=== PATIENT | male | born 1965 | race Two or more races ===

== ENCOUNTER 2020-11-23 00:43 | Inpatient (IN) | payer MEDICAID, OTHER ==
[~2020-11-23] VITALS: Ht 160 cm; Wt 62.5 kg
[2020-11-23 01:42] LABS: Basophils # (auto) 0 10 ^3/uL (0-0.2); Basophils % (auto) 0.7 % (0.0-2.0); Eosinophils # (auto) 0.1 10 ^3/uL (0-0.8); Eosinophils % (auto) 0.8 % (0.0-7.0); Hematocrit 38.2 % (41.0-53.0); Hemoglobin 13.5 g/dL (13.5-17.5); Lymphocytes # (auto) 0.8 10 ^3/uL (0.4-5.4); Lymphocytes % (auto) 12.1 % (10.0-50.0); Mean Corpuscular Hemoglobin 31.1 pg (28.0-32.0); Mean Corpuscular Hgb Conc. 35.4 g/dL (32.0-36.0); Mean Corpuscular Volume 87.8 fL (80.0-100.0); Monocytes # (auto) 0.7 10 ^3/uL (0-1.3); Monocytes % (auto) 9.9 % (0.0-12.0); Neutrophils # (auto) 5.3 10 ^3/uL (1.6-8.6); Neutrophils % (auto) 76.5 % (37.0-80.0); Nucleated Red Blood Cells % 0.1 %; Red Blood Cells 4.35 10^6/uL (4.5-5.90); Red Cell Distribution Width 13.2 % (11.8-14.3)
[2020-11-23 02:08] LABS: Potassium 4.3 mmol/L (3.5-5.1)
[2020-11-23 02:11] LABS: BUN/Creatinine Ratio 14.1
[2020-11-23 02:14] LABS: Bilirubin, Total 0.6 mg/dL (0.2-1.0); Total Protein 7.4 g/dL (6.4-8.2)
[2020-11-23 03:10] LABS: Urine Bacteria FEW /hpf (None Seen); Urine Blood Negative /uL (Negative); Urine Specific Gravity 1.024 (1.001-1.035); Urine WBC 1 /hpf (0 - 3)
[2020-11-23] MEDS ORDERED: HYDROmorphone HCL 2 MG/ML VL IV ONE ×2 (04:15→04:30)
[2020-11-23] MEDS ORDERED: PIPERACILLIN-TAZOB 3.375GM 100 ML IV ONE ×2 (04:15→04:30)
[2020-11-23] MEDS ORDERED: SODIUM CHLORIDE 0.9% 1,000 ML IV ONE ×2 (04:15→04:30)
[2020-11-23] MEDS ORDERED: InsuLIN REG 1unit/0.01ml Soln (100units/ml) IV ONE (04:30)
[2020-11-23] MEDS ORDERED: TEMAZEPAM 15 MG CAP PO PRN (06:30)
[2020-11-23] MEDS ORDERED: ONDANSETRON HCL 4 MG/2 ML VIAL IV PRN (06:30)
[2020-11-23] MEDS ORDERED: ACETAMINOPHEN 325 MG TAB PO PRN (06:30)
[2020-11-23] MEDS ORDERED: DEXTROSE (50%) 50ML SYRG IV PRN (13:45)
[2020-11-23] MEDS: CLINDAMYCIN 600MG IV 50 ML IV SCH ×2 (14:03→22:01)
[2020-11-23 14:42] LABS: INR 0.97 (0.9-1.15)
[2020-11-23 16:00] VITALS: BP 150/92
[2020-11-23 17:00] VITALS: BP 150/92
[2020-11-23] MEDS: ACCU-CHEK COMFORT CURVE STRIP VI SCH ×2 (17:37→22:30)
[2020-11-23] MEDS: InsuLIN REG 1unit/0.01ml Soln (100units/ml) SC SCH ×2 (17:40→22:34)
[2020-11-23 20:00] VITALS: BP 128/85
[2020-11-23 22:00] VITALS: BP 128/85
[2020-11-23] MEDS: INSULIN LANTUS (GLARGINE) 1 /0.01ml (100units/ml) SC SCH (22:35)
[2020-11-24 05:00] VITALS: BP 139/84
[2020-11-24 05:35] LABS: Basophils # (auto) 0 10 ^3/uL (0-0.2); Basophils % (auto) 0.7 % (0.0-2.0); Eosinophils # (auto) 0.1 10 ^3/uL (0-0.8); Eosinophils % (auto) 1.3 % (0.0-7.0); Hematocrit 35.7 % (41.0-53.0); Hemoglobin 12.6 g/dL (13.5-17.5); Lymphocytes % (auto) 15.4 % (10.0-50.0); Mean Corpuscular Hemoglobin 30.6 pg (28.0-32.0); Mean Corpuscular Hgb Conc. 35.4 g/dL (32.0-36.0); Mean Corpuscular Volume 86.5 fL (80.0-100.0); Monocytes # (auto) 0.6 10 ^3/uL (0-1.3); Monocytes % (auto) 10.3 % (0.0-12.0); Neutrophils # (auto) 4.5 10 ^3/uL (1.6-8.6); Neutrophils % (auto) 72.3 % (37.0-80.0); Red Blood Cells 4.13 10^6/uL (4.5-5.90); Red Cell Distribution Width 13.1 % (11.8-14.3); White Blood Cell 6.3 10^3/uL (4.4-10.8)
[2020-11-24 05:58] LABS: Potassium 3.9 mmol/L (3.5-5.1)
[2020-11-24] MEDS: CLINDAMYCIN 600MG IV 50 ML IV SCH ×3 (06:03→22:12)
[2020-11-24 06:05] LABS: Albumin 2.4 g/dL (3.4-5.0); BUN/Creatinine Ratio 18.5; Calcium 8.9 mg/dL (8.5-10.1)
[2020-11-24 06:08] LABS: Bilirubin, Total 0.5 mg/dL (0.2-1.0); Total Protein 6.5 g/dL (6.4-8.2)
[2020-11-24] MEDS: ACCU-CHEK COMFORT CURVE STRIP VI SCH ×4 (06:34→22:12)
[2020-11-24] MEDS: InsuLIN REG 1unit/0.01ml Soln (100units/ml) SC SCH ×4 (06:37→22:13)
[2020-11-24] MEDS: INSULIN LANTUS (GLARGINE) 1 /0.01ml (100units/ml) SC SCH ×2 (06:43→22:13)
[2020-11-24 08:54] VITALS: BP 135/87
[2020-11-24] MEDS: cefTRIAXone 1GM/50ML D5W 50 ML IV SCH (10:29)
[2020-11-24] MEDS: Glucerna Carbsteady SHAKE Vanilla 8oz PO SCH ×2 (12:29→18:14)
[2020-11-24 12:37] VITALS: BP 136/78
[2020-11-24 16:38] VITALS: BP 127/84
[2020-11-24] MEDS: HYDROcodone-ACET 5/325MG TAB PO PRN (19:20)
[2020-11-25 05:00] VITALS: BP 107/68
[2020-11-25 05:26] LABS: Basophils # (auto) 0 10 ^3/uL (0-0.2); Basophils % (auto) 0.6 % (0.0-2.0); Eosinophils # (auto) 0.1 10 ^3/uL (0-0.8); Eosinophils % (auto) 2.3 % (0.0-7.0); Hematocrit 39.9 % (41.0-53.0); Hemoglobin 14.1 g/dL (13.5-17.5); Lymphocytes % (auto) 18.1 % (10.0-50.0); Mean Corpuscular Hgb Conc. 35.2 g/dL (32.0-36.0); Mean Corpuscular Volume 87.9 fL (80.0-100.0); Monocytes # (auto) 0.7 10 ^3/uL (0-1.3); Monocytes % (auto) 12.8 % (0.0-12.0); Neutrophils # (auto) 3.7 10 ^3/uL (1.6-8.6); Neutrophils % (auto) 66.2 % (37.0-80.0); Nucleated Red Blood Cells % 0.1 %; Red Blood Cells 4.55 10^6/uL (4.5-5.90); Red Cell Distribution Width 13.2 % (11.8-14.3); White Blood Cell 5.6 10^3/uL (4.4-10.8)
[2020-11-25 05:41] LABS: Potassium 3.9 mmol/L (3.5-5.1)
[2020-11-25 05:49] LABS: Albumin 2.2 g/dL (3.4-5.0); BUN/Creatinine Ratio 21.4; Bilirubin, Total 0.3 mg/dL (0.2-1.0); Calcium 8.8 mg/dL (8.5-10.1); Total Protein 6.8 g/dL (6.4-8.2)
[2020-11-25] MEDS: CLINDAMYCIN 600MG IV 50 ML IV SCH ×3 (06:16→21:50)
[2020-11-25] MEDS: ACCU-CHEK COMFORT CURVE STRIP VI SCH ×4 (06:16→21:50)
[2020-11-25] MEDS: InsuLIN REG 1unit/0.01ml Soln (100units/ml) SC SCH ×4 (06:19→21:53)
[2020-11-25] MEDS: INSULIN LANTUS (GLARGINE) 1 /0.01ml (100units/ml) SC SCH ×2 (06:19→21:52)
[2020-11-25] MEDS: HYDROcodone-ACET 5/325MG TAB PO PRN (06:21)
[2020-11-25 08:00] VITALS: BP 108/75
[2020-11-25] MEDS: Glucerna Carbsteady SHAKE Vanilla 8oz PO SCH ×3 (08:00→18:00)
[2020-11-25 09:00] VITALS: BP 108/75
[2020-11-25] MEDS: cefTRIAXone 1GM/50ML D5W 50 ML IV SCH (09:00)
[2020-11-25 13:00] VITALS: BP_SYST 114; BP_SYST 126; BP_DIAS 72; BP_DIAS 75
[2020-11-25 16:59] VITALS: BP 116/73
[2020-11-25] MEDS: PIPERACILLIN-TAZOB 3.375GM 100 ML IV SCH (18:10)
[2020-11-25 22:00] VITALS: BP 118/83
[2020-11-26] MEDS: PIPERACILLIN-TAZOB 3.375GM 100 ML IV SCH ×4 (00:45→16:32)
[2020-11-26 05:00] VITALS: BP 105/71
[2020-11-26 05:40] LABS: Basophils # (auto) 0 10 ^3/uL (0-0.2); Basophils % (auto) 0.8 % (0.0-2.0); Eosinophils # (auto) 0.2 10 ^3/uL (0-0.8); Eosinophils % (auto) 2.7 % (0.0-7.0); Hemoglobin 13.7 g/dL (13.5-17.5); Lymphocytes # (auto) 0.8 10 ^3/uL (0.4-5.4); Lymphocytes % (auto) 13.8 % (10.0-50.0); Mean Corpuscular Hemoglobin 30.2 pg (28.0-32.0); Mean Corpuscular Hgb Conc. 34.2 g/dL (32.0-36.0); Mean Corpuscular Volume 88.2 fL (80.0-100.0); Monocytes # (auto) 0.7 10 ^3/uL (0-1.3); Monocytes % (auto) 11.7 % (0.0-12.0); Neutrophils # (auto) 4.2 10 ^3/uL (1.6-8.6); Nucleated Red Blood Cells % 0.1 %; Red Blood Cells 4.54 10^6/uL (4.5-5.90); White Blood Cell 5.9 10^3/uL (4.4-10.8)
[2020-11-26 06:08] LABS: Albumin 2.1 g/dL (3.4-5.0); Calcium 8.7 mg/dL (8.5-10.1); Potassium 4.2 mmol/L (3.5-5.1)
[2020-11-26 06:12] LABS: BUN/Creatinine Ratio 22.4; Bilirubin, Total 0.3 mg/dL (0.2-1.0)
[2020-11-26] MEDS: CLINDAMYCIN 600MG IV 50 ML IV SCH ×3 (06:52→21:29)
[2020-11-26] MEDS: ACCU-CHEK COMFORT CURVE STRIP VI SCH ×4 (07:31→21:29)
[2020-11-26] MEDS: InsuLIN REG 1unit/0.01ml Soln (100units/ml) SC SCH ×4 (07:33→21:38)
[2020-11-26] MEDS: INSULIN LANTUS (GLARGINE) 1 /0.01ml (100units/ml) SC SCH ×2 (07:34→21:38)
[2020-11-26] MEDS: Glucerna Carbsteady SHAKE Vanilla 8oz PO SCH ×3 (08:00→16:32)
[2020-11-26 09:00] VITALS: BP 109/70
[2020-11-26 12:55] VITALS: BP 128/85
[2020-11-26 16:45] VITALS: BP 136/87
[2020-11-26 22:00] VITALS: BP 116/72
[2020-11-27] MEDS: PIPERACILLIN-TAZOB 3.375GM 100 ML IV SCH ×3 (00:05→09:52)
[2020-11-27 05:00] VITALS: BP 121/85
[2020-11-27] MEDS: CLINDAMYCIN 600MG IV 50 ML IV SCH ×2 (05:57→13:29)
[2020-11-27 06:22] LABS: Basophils # (auto) 0 10 ^3/uL (0-0.2); Basophils % (auto) 0.5 % (0.0-2.0); Eosinophils # (auto) 0.2 10 ^3/uL (0-0.8); Eosinophils % (auto) 3.1 % (0.0-7.0); Hemoglobin 14.2 g/dL (13.5-17.5); Lymphocytes # (auto) 1.1 10 ^3/uL (0.4-5.4); Lymphocytes % (auto) 18.4 % (10.0-50.0); Mean Corpuscular Hemoglobin 30.6 pg (28.0-32.0); Mean Corpuscular Hgb Conc. 34.5 g/dL (32.0-36.0); Mean Corpuscular Volume 88.5 fL (80.0-100.0); Monocytes # (auto) 0.7 10 ^3/uL (0-1.3); Monocytes % (auto) 11.6 % (0.0-12.0); Neutrophils # (auto) 3.9 10 ^3/uL (1.6-8.6); Neutrophils % (auto) 66.4 % (37.0-80.0); Nucleated Red Blood Cells % 0.1 %; Red Blood Cells 4.63 10^6/uL (4.5-5.90); Red Cell Distribution Width 13.2 % (11.8-14.3); White Blood Cell 5.8 10^3/uL (4.4-10.8)
[2020-11-27 06:34] LABS: Calcium 9.2 mg/dL (8.5-10.1); Potassium 4.8 mmol/L (3.5-5.1)
[2020-11-27 06:36] LABS: BUN/Creatinine Ratio 21.4
[2020-11-27] MEDS: ACCU-CHEK COMFORT CURVE STRIP VI SCH ×2 (06:40→09:52)
[2020-11-27] MEDS: INSULIN LANTUS (GLARGINE) 1 /0.01ml (100units/ml) SC SCH (06:55)
[2020-11-27] MEDS: InsuLIN REG 1unit/0.01ml Soln (100units/ml) SC SCH ×2 (06:56→09:51)
[2020-11-27] MEDS: Glucerna Carbsteady SHAKE Vanilla 8oz PO SCH ×2 (08:00→09:53)
[2020-11-27 09:00] VITALS: BP 107/66
[2020-11-27 13:00] VITALS: BP 134/89
[2020-11-27 16:01] VITALS: BP 113/75
[2020-11-27] MEDS ORDERED: METF-370 PO (16:06)
[2020-11-27] MEDS ORDERED: GLIP5TAB12 PO (16:06)
[2020-11-27] MEDS ORDERED: CLIN300C8 PO (16:06)
== END 2020-11-27 16:35 | disposition home or self-care (01) | DRG 383 ==
LOC: ER 00:43 → OVERFLOW 06:30 → WEST WING 15:40
PROVIDERS: ADMIT Nurse Practitioner; ATTEND Internal Medicine
DX: L03.032 Cellulitis of left toe (principal); E44.0 Moderate protein-calorie malnutrition; E87.1 Hypo-osmolality and hyponatremia; D63.8 Anemia in other chronic diseases classified elsewhere; E88.09 Other disorders of plasma-protein metabolism, not elsewhere classified; Z20.822 Contact with and (suspected) exposure to COVID-19; E11.65 Type 2 diabetes mellitus with hyperglycemia; Z79.899 Other long term (current) drug therapy
CPT/HCPCS: 36415; 73700; 80048; 80053; 81001; 82962; 83036; 83605; 84443; 84550; 85025; 85379; 85610; 87040; 87081; 87086; 87205; 87426; 96365; 96367; 96375; G0378; J0696; J1815; J2543; J3490

== ENCOUNTER 2021-03-29 08:17 | Emergency (ER) | payer MEDICAID ==
[~2021-03-29] VITALS: Ht 162.6 cm; Wt 59.0 kg
[~2021-03-29 08:17] MED LIST: CLIN300C8 PO; GLIP5TAB12 PO; METF-370 PO
[2021-03-29 08:32] VITALS: BP 136/86
[2021-03-29] MEDS ORDERED: methylPREDNISolone SOD SUCC 125 MG/2 ML VL IM ONE (09:00)
== END 2021-03-29 09:35 | disposition home or self-care (01) ==
LOC: ER 08:17
DX: L23.9 Allergic contact dermatitis, unspecified cause (principal); G89.29 Other chronic pain; M54.50 Low back pain, unspecified
CPT/HCPCS: 96372; 99283; J2930

== ENCOUNTER 2021-04-13 14:07 | Emergency (ER) | payer MEDICAID ==
[~2021-04-13] VITALS: Ht 162.6 cm; Wt 59.0 kg
[2021-04-13 15:05] VITALS: BP 101/57
[2021-04-13] MEDS ORDERED: IBUP800T27 PO (15:08)
== END 2021-04-13 15:25 | disposition home or self-care (01) ==
LOC: ER 14:07
DX: G89.29 Other chronic pain (principal); M54.9 Dorsalgia, unspecified; Z76.0 Encounter for issue of repeat prescription; Z79.1 Long term (current) use of non-steroidal anti-inflammatories (NSAID); Z79.2 Long term (current) use of antibiotics; Z79.899 Other long term (current) drug therapy

== ENCOUNTER 2021-05-17 11:27 | Emergency (ER) | payer MEDICAID ==
[~2021-05-17] VITALS: Ht 162.6 cm; Wt 59.9 kg
[~2021-05-17 11:27] MED LIST changes: +IBUP800T27 PO
[2021-05-17 11:55] VITALS: BP 119/74
== END 2021-05-17 12:24 | disposition home or self-care (01) ==
LOC: ER 11:27
DX: E11.9 Type 2 diabetes mellitus without complications (principal); G89.29 Other chronic pain; M54.50 Low back pain, unspecified; Z76.0 Encounter for issue of repeat prescription

== ENCOUNTER 2021-06-20 12:22 | Emergency (ER) | payer MEDICAID ==
[~2021-06-20] VITALS: Ht 162.6 cm; Wt 59.0 kg
[2021-06-20] MEDS ORDERED: METF-370 PO (15:34)
[2021-06-20] MEDS ORDERED: GLIP5TAB12 PO (15:34)
[2021-06-20] MEDS ORDERED: NAP500T PO (15:34)
[2021-06-20 15:48] VITALS: BP 138/76
== END 2021-06-20 15:52 | disposition home or self-care (01) ==
LOC: ER 12:25
DX: G89.29 Other chronic pain (principal); M54.50 Low back pain, unspecified; M48.061 Spinal stenosis, lumbar region without neurogenic claudication; E11.9 Type 2 diabetes mellitus without complications; Z79.2 Long term (current) use of antibiotics; Z79.1 Long term (current) use of non-steroidal anti-inflammatories (NSAID); Z79.899 Other long term (current) drug therapy
CPT/HCPCS: 72131; 82962; 93005

== ENCOUNTER 2021-10-05 12:36 | Emergency (ER) | payer MEDICAID ==
[~2021-10-05] VITALS: Ht 160 cm; Wt 59.9 kg
[~2021-10-05 12:36] MED LIST changes: +NAP500T PO
[2021-10-05 12:46] VITALS: BP 94/63
[2021-10-05] MEDS ORDERED: IBUP600T27 PO (13:55)
== END 2021-10-05 14:03 | disposition home or self-care (01) ==
LOC: ER 12:36
DX: G89.29 Other chronic pain (principal); M54.50 Low back pain, unspecified; Z76.0 Encounter for issue of repeat prescription

== ENCOUNTER 2021-11-15 14:45 | Emergency (ER) | payer MEDICAID ==
[~2021-11-15] VITALS: Ht 165.1 cm; Wt 130.0 kg
[~2021-11-15 14:45] MED LIST changes: +IBUP600T27 PO
[2021-11-15] MEDS ORDERED: IBUP800T27 PO (15:18)
[2021-11-15 15:29] VITALS: BP 103/64
== END 2021-11-15 15:39 | disposition home or self-care (01) ==
LOC: ER 14:45
DX: G89.29 Other chronic pain (principal); M54.50 Low back pain, unspecified; Z76.0 Encounter for issue of repeat prescription

== ENCOUNTER 2022-01-31 12:12 | Emergency (ER) | payer MEDICAID ==
[~2022-01-31] VITALS: Ht 162.6 cm; Wt 59.0 kg
[2022-01-31 13:00] VITALS: BP 115/50
[2022-01-31] MEDS ORDERED: NAPR500T31 PO (13:33)
== END 2022-01-31 13:37 | disposition home or self-care (01) ==
LOC: ER 12:12
DX: G89.29 Other chronic pain (principal); M54.9 Dorsalgia, unspecified; Z76.0 Encounter for issue of repeat prescription; Z79.1 Long term (current) use of non-steroidal anti-inflammatories (NSAID); Z79.899 Other long term (current) drug therapy

== ENCOUNTER 2022-03-14 15:22 | Emergency (ER) | payer MEDICAID ==
[~2022-03-14] VITALS: Ht 162.6 cm; Wt 60.0 kg
[~2022-03-14 15:22] MED LIST changes: +NAPR500T31 PO
[2022-03-14 17:22] VITALS: BP 99/63
[2022-03-14] MEDS ORDERED: NAPR500T31 PO (17:30)
== END 2022-03-14 17:48 | disposition home or self-care (01) ==
LOC: ER 15:22
DX: G89.29 Other chronic pain (principal); M54.50 Low back pain, unspecified; Z76.0 Encounter for issue of repeat prescription

== ENCOUNTER 2022-08-16 08:42 | Emergency (ER) | payer MEDICAID ==
[~2022-08-16] VITALS: Ht 162.6 cm; Wt 65.0 kg
[2022-08-16 09:30] VITALS: BP 152/97
[2022-08-16] MEDS ORDERED: KETOROLAC TROMETH 60MG/2ML VIAL IM ONE (09:30)
== END 2022-08-16 09:54 | disposition home or self-care (01) ==
LOC: ER 08:42
DX: M54.42 Lumbago with sciatica, left side (principal); G89.29 Other chronic pain; Z79.1 Long term (current) use of non-steroidal anti-inflammatories (NSAID); Z79.899 Other long term (current) drug therapy
CPT/HCPCS: 96372; 99283; J1885

== ENCOUNTER 2022-11-08 15:49 | Emergency (ER) | payer MEDICAID ==
[~2022-11-08] VITALS: Ht 162.6 cm; Wt 60.9 kg
[~2022-11-08 15:49] MED LIST changes: +CLIN300C70 PO; -CLIN300C8 PO; +IBUP-1454 PO; +IBUP-1456 PO; -IBUP600T27 PO; -IBUP800T27 PO; +NAPR-746 PO; -NAPR500T31 PO
[2022-11-08] MEDS ORDERED: IBUP-1456 PO (17:49)
[2022-11-08] MEDS ORDERED: KETOROLAC TROMETH 60MG/2ML VIAL IM ONE (18:00)
[2022-11-08 18:03] VITALS: BP 149/94
== END 2022-11-08 18:05 | disposition home or self-care (01) ==
LOC: ER 15:49
DX: M51.36 Other intervertebral disc degeneration, lumbar region (principal)
CPT/HCPCS: 72100; 96372; 99283; J1885

== ENCOUNTER 2022-12-21 09:24 | Emergency (ER) | payer MEDICAID ==
[~2022-12-21] VITALS: Ht 162.6 cm; Wt 58.4 kg
[2022-12-21 10:32] LABS: Urine Bacteria NONE SEEN /hpf (None Seen); Urine Blood 3+ /uL (Negative); Urine Clarity CLOUDY (Clear); Urine Color Yellow (Yellow); Urine Mucus FEW (None Seen); Urine Protein, UAD 3+ (Negative); Urine Specific Gravity 1.018 (1.001-1.035); Urine Urobilinogen Normal (Negative); Urine WBC 1739 /hpf (0 - 3); Urine WBC Clumps PRESENT /hpf (None Seen)
[2022-12-21 10:43] LABS: Basophils # (auto) 0 10 ^3/uL (0-0.2); Basophils % (auto) 0.2 % (0.0-2.0); Eosinophils # (auto) 0 10 ^3/uL (0-0.8); Eosinophils % (auto) 0.3 % (0.0-7.0); Hematocrit 34.4 % (41.0-53.0); Hemoglobin 11.6 g/dL (13.5-17.5); Lymphocytes # (auto) 0.7 10 ^3/uL (0.4-5.4); Lymphocytes % (auto) 5.5 % (10.0-50.0); Mean Corpuscular Hemoglobin 30.6 pg (28.0-32.0); Mean Corpuscular Hgb Conc. 33.6 g/dL (32.0-36.0); Mean Corpuscular Volume 91.1 fL (80.0-100.0); Monocytes % (auto) 8.6 % (0.0-12.0); Neutrophils # (auto) 10.1 10 ^3/uL (1.6-8.6); Neutrophils % (auto) 85.4 % (37.0-80.0); Red Blood Cells 3.78 10^6/uL (4.5-5.90); Red Cell Distribution Width 13.1 % (11.8-14.3); White Blood Cell 11.9 10^3/uL (4.4-10.8)
[2022-12-21] MEDS ORDERED: KETOROLAC TROMETH 30 MG/ML 1ML VIAL IV ONE (11:00)
[2022-12-21] MEDS ORDERED: cefTRIAXone 1GM/50ML D5W 50 ML IV ONE (11:00)
[2022-12-21] MEDS ORDERED: SODIUM CHLORIDE 0.9% 1,000 ML IV ONE (11:00)
[2022-12-21 11:02] LABS: Alanine Aminotransferase 27 U/L (7-40); Alkaline Phosphatase 77 U/L (46-116); Anion Gap 6.5 (5-15); Aspartate Aminotransferase 12 U/L (13-40); Bilirubin, Total 0.9 mg/dL (0.2-1.0); Blood Urea Nitrogen 12 mg/dL (9-23); Calcium 8.8 mg/dL (8.5-10.1); Carbon Dioxide 25.5 mmol/L (20-30); Chloride 105 mmol/L (98-107); Glucose 317 mg/dL (74-106); Potassium 3.9 mmol/L (3.5-5.1); Sodium 137 mmol/L (136-145); Total Protein 6.4 g/dL (5.7-8.2)
[2022-12-21 11:13] VITALS: BP 115/75; PULSE 96; RESP 18; O2SAT 100
[2022-12-21] MEDS ORDERED: InsuLIN REG 1unit/0.01ml Soln (100units/ml) IV ONE (11:30)
[2022-12-21] MEDS ORDERED: CIPR-173 PO ×3 (12:06→12:07)
[2022-12-21] MEDS ORDERED: PHEN-922 PO ×3 (12:06→12:07)
== END 2022-12-21 12:18 | disposition home or self-care (01) ==
LOC: ER 09:24
DX: N39.0 Urinary tract infection, site not specified (principal); E11.65 Type 2 diabetes mellitus with hyperglycemia; Z79.2 Long term (current) use of antibiotics; Z79.1 Long term (current) use of non-steroidal anti-inflammatories (NSAID); Z79.899 Other long term (current) drug therapy
CPT/HCPCS: 36415; 80053; 81001; 82962; 85025; 96365; 96375; 99284; J0696; J1815; J1885; J7030